=== PATIENT | male | born 2000 | race Caucasian/White ===

== ENCOUNTER 2023-05-12 10:13 | Emergency (ER) | payer SELFPAY ==
[~2023-05-12] VITALS: Ht 180 cm; Wt 15.2 kg
[2023-05-12 10:35] VITALS: BP 157/93; PULSE 89; RESP 20; TEMP 96.7; O2SAT 96
[2023-05-12] MEDS ORDERED: HYDROcodone/APAP 10/325 MG 1 TAB TAB PO PRN (12:30)
[2023-05-12] MEDS ORDERED: NAPR-54 PO (12:46)
[2023-05-12] MEDS ORDERED: AMOX500C25 PO (12:46)
[2023-05-12] MEDS ORDERED: CARB15DR61 OT (12:51)
[2023-05-12] MEDS ORDERED: HYDROcodone/APAP 10/325 MG 1 TAB TAB PO ONE (13:00)
[2023-05-12 13:15] VITALS: BP 138/88; PULSE 88; RESP 20; TEMP 98; O2SAT 98
== END 2023-05-12 13:18 | disposition home or self-care (01) ==
LOC: MED 10:13
DX: K04.7 Periapical abscess without sinus (principal); Z79.899 Other long term (current) drug therapy
CPT/HCPCS: 99283